=== PATIENT | male | born 1955 | race Caucasian/White ===

== ENCOUNTER 2016-05-05 08:32 | Inpatient (IN) | payer BC ==
--- NOTE | ~2016-05-05 | DS ---
Discharge Summary [facility] [address] [place]. [address] NAME: RICK ORELLANA : 57 STATUS : DIS IN PAT#: [id number] AGE: 60 ADM/REG DATE : 05/05/16 MR#: [id number] REPORT SERV DATE: 05/10/16 DICTATED BY: ROSA MARIA SERNA DATE: 05/09/16 REPORT STATUS : Draft TRANSCRIBED BY: MODL DATE: 05/09/16 ADMISSION DATE: 05/05/2016 DISCHARGE DATE: 05/09/2016 DISCHARGE DIAGNOSES: 1. Acute cholecystitis with choledocholithiasis with presentation of obstructive jaundice, improved, is not getting any worse, status post ERCP. 2. Upa-PA-cvondewwo myocardial infarction, status post PCI with stent on 05/08/2016 and will need at least a year of dual antiplatelet therapy. 3. Diabetes mellitus. 4. Congestive heart failure, systolic dysfunction, compensated. 5. Hyperlipidemia. Zetia was started on this admission. 6. Elevated liver function tests, need to closely monitor. CONSULTATIONS: 1. Dr. Lowery. 2. . 3. Dr. Harper. PROCEDURE: 1. ERCP. 2. Cardiac catheterization with stent on PDA. HISTORY OF PRESENT ILLNESS: This is a 60-year-old male patient, who initially came to the hospital with nausea, vomiting, and jaundice. Please see dictated H and P done by Dr. Ramirez for detailed history and physical exam. HOSPITAL COURSE: Please see dictated interim discharge summary. The patient has been admitted to the hospital with acute obstructive jaundice, seen by GI Service, had an ERCP on 05/05/2016. At that time, he was having common bile duct stone. Dr. Cai did a sphincterectomy and did remove three stones and balloon angioplasty. After that, recommended to get laparoscopic cholecystectomy with the general surgeon. General surgeon has been following this patient as well. However, he ended up having chest pain and was found to have non-ST elevation [place]. He had a cardiac catheterization done with Dr. Parks on 05/08/2016, and had a stent on PDA. Therefore, the patient will need dual antiplatelet therapy at least one year, and medical therapy for mid LAD lesion. His LFTs and total bilirubin have been stabilized, it is not getting any worse and he is symptom free. He is tolerating diet without any problem such as nausea or vomiting. His jaundice is not getting any worse either. Knowing that he will be on dual antiplatelet therapy for at least a year, the patient is not a candidate for any surgical intervention at the current level, and also his LFTs are stable. In order to control the hyperlipidemia, initially he was put on statin, but it was changed to Zetia by Dr. Parks after the cardiac cath due to elevated LFTs in light of episodes of acute obstructive jaundice. So far, he is tolerating all the procedures and maintaining a Discharge Summary [address] [address] NAME: RICK ORELLANA : 57 STATUS : DIS IN PAT#: [id number] AGE: 60 ADM/REG DATE : 05/05/16 MR#: [id number] REPORT SERV DATE: 05/10/16 DICTATED BY: ROSA MARIA SERNA DATE: 05/09/16 REPORT STATUS : Draft TRANSCRIBED BY: MODL DATE: 05/09/16 stable level. He is tolerating his diet. His LFTs are stable, and also again, he is not a candidate for surgery at this point, so he was instructed to follow up with primary care physician very closely for his LFTs and also information about the diet changes given. His family, his and himself, voiced understanding. Therefore, the patient will be discharged to home and follow up at Dr. Willoughby and Dr. Graham and Dr. Booker. DISCHARGE MEDICATIONS: Same as home medications. Brilinta was added 90 mg twice a day, aspirin 81 mg once a day, Zetia 10 mg once a day. Those are new medications. Continue to have all the home medications including Norvasc 10 mg once a day, Coreg 25 mg twice a day, Cozaar 100 mg once at nighttime, Prilosec 20 mg once a day, Hytrin 5 mg once at nighttime, metformin 500 mg twice a day, Farxiga 5 mg once a day, Inspra 50 mg once a day. DISPOSITION: The patient is discharged to home in stable condition. TIME SPENT: More than 30 minutes on discharge coordination and education. EKL/MODL Rosa Maria Serna M.D. / [id number] CC: Rayshawn Tillman M.D.
--- NOTE | ~2016-05-05 | IDS ---
Interim Discharge Summary [facility] [address] [place]. [address] NAME: RICK ORELLANA : 57 STATUS : ADM IN [facility]#: [id number] AGE: 60 ADM/REG DATE : 05/05/16 MR#: [id number] REPORT SERV DATE: 05/08/16 DICTATED BY: DATE: REPORT STATUS : Draft TRANSCRIBED BY: MODL DATE: 05/08/16 ADMISSION DATE: 05/05/2016 DISCHARGE DATE: INTERIM DISCHARGE DIAGNOSES: 1. Zsk-CH-aydcpld elevation myocardial infarction. 2. Hepatomegaly transaminitis. 3. Nonischemic cardiomyopathy. 4. Hyperlipidemia. 5. Diabetes mellitus, type 2. 6. Choledocholithiasis, needing a cholecystectomy. CONSULTING PHYSICIANS: Include Dr. Leroy SIMPSON as well as Dr. Doni Cai with GI Medicine, Dr. Lowery, Dr. Sylvain Fields. IMAGING: Includes CT of the abdomen and pelvis with contrast which demonstrated mild dilatation of the common duct with choledocholithiasis, small ventral hernia, partially calcified density in the left posterior medial chest base stable compared to 04/03/2012. The patient also underwent an ultrasound of the gallbladder which showed cholelithiasis without evidence of acute cholecystitis or biliary obstruction. There was a hypoechoic liver lesion measuring 2.3 x 1.2 cm. Echocardiogram was performed which showed mildly decreased left ventricular systolic function with an estimated ejection fraction of 40% to 45%, mild left ventricular hypertrophy, anterior septal hypokinesis, normal right ventricular chamber size and systolic function, no significant valvular regurgitation or stenosis noted. The patient underwent an ERCP on 05/05/[address] Doni Cai. The major papilla appeared normal. The main bile duct was mildly dilated. Choledocholithiasis was found, complete removal was accomplished by biliary sphincterotomy and balloon extraction, he recommended a cholecystectomy and Surgery was consulted. For full H and P, please refer to Dr. Chase Ramirez's dictation on 05/05/2016. HOSPITAL COURSE/PROBLEM LIST: 1. Non-STEMI. The patient underwent a cardiac catheterization today performed by Dr. Pascual Parks, 90% proximal PDA, 70% mid-LAD occlusion, and appears that the stent was placed in the PDA and was drug-eluting. Dr. Parks recommend dual antiplatelet therapy an optimal duration of at least one year, medical therapy for mid-LAD disease. 2. Hepatomegaly transaminitis. Today, the patient's AST is up to 310, ALT is up to 172, unclear if this is due to statin therapy. The patient has had issues in the past with elevated liver enzymes from statin therapy. Dr. Harper cautiously placed him on a statin due to his poor cholesterol and cardiac issues at this time. However, it is unclear this is going to be beneficial if his enzymes continue to elevate. Hepatitis panel was drawn which was negative initially. He currently is not complaining of abdominal pain. No nausea or vomiting is present. Continue to watch transaminases. 3. Choledocholithiasis. The patient needs cholecystectomy with the above interventions and drug-eluting stent with dual antiplatelet therapy. It is unclear when the patient will be able to get his cholecystectomy and this will be a conversation between Surgery Interim Discharge Summary [address] [address] NAME: RICK ORELLANA : 57 STATUS : ADM IN [facility]#: [id number] AGE: 60 ADM/REG DATE : 05/05/16 MR#: [id number] REPORT SERV DATE: 05/08/16 DICTATED BY: DATE: REPORT STATUS : Draft TRANSCRIBED BY: MODL DATE: 05/08/16 and Cardiology as to what the optimal timing for this would be. 4. Diabetes mellitus, type 2. His blood glucose is ranged from 110s to 140s, hemoglobin A1c is 6.6, the patient has been on level 1 sliding scale and has not required any insulin. 5. Hyperlipidemia. As mentioned above, statin therapy was cautiously prescribed. Close monitoring of his transaminases will need to continue. The patient currently is in short-stay, unclear if he is going to go back to [address] [place] [address] to [facility]. CLR/MODL Van Lazcano NP / [id number] CC: MD Girish Sanders M.D.
--- NOTE | ~2016-05-05 | CN ---
Consultation Report [facility] [address] [place]. [address] NAME: RICK ORELLANA : 57 STATUS : ADM IN PAT#: [id number] AGE: 60 ADM/REG DATE : 05/05/16 MR#: [id number] REPORT SERV DATE: 05/05/16 DICTATED BY: EDI LOWERY DATE: 05/05/16 REPORT STATUS : Draft TRANSCRIBED BY: MODL DATE: 05/05/16 GI CONSULT DATE OF CONSULTATION: 05/05/2016 REASON FOR CONSULTATION: Regarding elevated liver tests. HISTORY OF PRESENT ILLNESS: This is a pleasant, 60-year-old, man, patient of Dr. Graham who presented to the emergency room after 2 weeks of fatigue and intermittent low- grade fever. He developed jaundice and dark urine about one to two days ago. Workup at [facility] was notable for elevated liver tests, see details below. Chest x-ray was negative. He was sent to [facility] for further evaluation and management. Colonoscopy in 06/[address] Graham showed diverticulosis, a patent end-to-end colocolonic anastomosis, internal hemorrhoids and one small polyp removed. EGD showed short segment Juares's and a hiatal hernia. Exam otherwise largely unremarkable. MEDICAL HISTORY: Remarkable for dilated cardiomyopathy with ejection fraction 30%, type 2 diabetes, Juares's esophagus, hypertension. He has a history of diverticulitis with obstruction and surgical intervention with end-colostomy and eventual takedown by Dr. Blanco in 2012. ALLERGIES: STATINS. MEDICATIONS: Norvasc, Coreg, Farxiga, Inspra, Cozaar, Glumetza, Prilosec, Hytrin. FAMILY HISTORY: Remarkable for colorectal cancer in first degree relative. Otherwise negative. SOCIAL HISTORY: Does not use alcohol or tobacco significantly. REVIEW OF SYSTEMS: A complete review of systems was obtained and negative except that noted in the history of present illness. PHYSICAL EXAMINATION: VITAL SIGNS: He is currently afebrile. Temperature 97.4, pulse 62, respirations 18, and blood pressure 132/77. DATA: From outlying emergency room shows the following: Chest x-ray, no focal infiltrate or radiographic evidence of acute cardiopulmonary disease. Total bilirubin is 4.6, AST 128, ALT 293, alkaline phosphatase 155. WBC 5.5, hematocrit 46.4, MCV 91.5, platelets 269, bicarb 27, potassium 3.8, albumin is 3.7, and creatinine is 1.0. IMPRESSION: Consultation Report [facility] [address] [place]. [address] NAME: RICK ORELLANA : 57 STATUS : ADM IN PAT#: [id number] AGE: 60 ADM/REG DATE : 05/05/16 MR#: [id number] REPORT SERV DATE: 05/05/16 DICTATED BY: EDI LOWERY DATE: 05/05/16 REPORT STATUS : Draft TRANSCRIBED BY: AUGUSTUS DATE: 05/05/16 1. Jaundice with elevated liver tests. Question related to intrinsic liver disease versus biliary obstruction, favor the latter. 2. Congestive heart failure, controlled. RECOMMENDATIONS: 1. Follow liver panel and start antibiotics to cover biliary tree. 2. CT scan pending. 3. Anticipate ERCP to study bile duct. CC/AUGUSTUS Edi Lowery M.D. / [id number] CC: MD Aubrey Sanders III, M.D.
--- NOTE | ~2016-05-05 | EGD ---
EGD REPORT [facility] [address] [address] NAME: RICK SQUIRES : 57 STATUS : ADM IN PAT#: [id number] AGE: 60 ADM/REG DATE : 05/05/16 MR#: [id number] REPORT SERV DATE: 05/05/16 DICTATED BY: ANNMARIE WORLEY DATE: 05/05/16 REPORT STATUS : Draft TRANSCRIBED BY: [employer] DATE: 05/05/16 [facility] Patient Name: Rick Squires Date of : 1955 Attending MD: ANNMARIE WORLEY, Procedure Date No Time: 05/05/2016 Procedure: ERCP Indications: Bile duct stone(s), Suspected ascending cholangitis Referring MD: CROW FONSECA III, MD Medicines: General Anesthesia Complications: No immediate complications. Estimated blood loss: None Procedure: Pre-Anesthesia Assessment: - ASA Grade Assessment: IV - A patient with severe systemic disease that is a constant threat to life. After obtaining informed consent, the scope was passed under direct vision. Throughout the procedure, the patient's blood pressure, pulse, and oxygen saturations were monitored continuously. The Duodenoscope was introduced through the mouth, and advanced to the duodenum and used to inject contrast into the bile duct. Findings: The major papilla was normal. The bile duct was deeply cannulated with the short-nosed traction sphincterotome. Contrast was injected. I personally interpreted the bile duct images. Ductal flow of contrast was adequate. The lower third of the main bile duct contained three stones, the largest of which was 6 mm in diameter. The main bile duct was mildly dilated and diffusely dilated. The left and right hepatic ducts and all intrahepatic branches were normal. Biliary sphincterotomy was made with a traction (standard) sphincterotome using ERBE electrocautery. There was no post-sphincterotomy bleeding. The biliary tree was swept with a 12 mm balloon starting at the upper third of the main bile duct. Three stones were removed. No stones remained. Impression: - The major papilla appeared normal. - The entire main bile duct was mildly dilated. - Choledocholithiasis was found. Complete removal was accomplished by biliary sphincterotomy and balloon extraction. Recommendation: - Return to previous diet. - Continue present medications. - Surgical consult for cholecystectomy. Procedure Code(s): --- Professional --- EGD REPORT [address] [address] NAME: RICK SQUIRES : 57 STATUS : ADM IN [facility]#: [id number] AGE: 60 ADM/REG DATE : 05/05/16 MR#: [id number] REPORT SERV DATE: 05/05/16 DICTATED BY: ANNMARIE WORLEY DATE: 05/05/16 REPORT STATUS : Draft TRANSCRIBED BY: [employer] DATE: 05/05/16 [id number], Endoscopic retrograde cholangiopancreatography (ERCP); with removal of calculi/debris from biliary/pancreatic duct(s) [address], Endoscopic retrograde cholangiopancreatography (ERCP); with sphincterotomy/papillotomy Diagnosis Code(s): --- Professional --- K80.50, Calculus of bile duct without cholangitis or cholecystitis without obstruction Q44.0, Agenesis, 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 All rights reserved. The codes documented in this report are preliminary and upon insurance claims assistant review may be revised to meet current compliance requirements. ANNMARIE WORLEY, 05/05/2016 5:25 PM Number of Addenda: 0 Note Initiated On: 05/05/2016 4:53 PM Scope Withdrawal Time 0 hours 0 minutes 0 seconds [address] [place] [address]
--- NOTE | ~2016-05-05 | CN ---
Consultation Report [place] [address]. [address] NAME: RICK ORELLANA : 57 STATUS : ADM IN [facility]#: [id number] AGE: 60 ADM/REG DATE : 05/05/16 MR#: [id number] REPORT SERV DATE: 05/06/16 DICTATED BY: SYLVAIN MELCHOR DATE: 05/05/16 REPORT STATUS : Draft TRANSCRIBED BY: MODL DATE: 05/05/16 SURGERY CONSULT NOTE DATE OF CONSULTATION: 05/05/2016 TIME OF CONSULTATION: 2130 hours. REASON FOR CONSULT: Choledocholithiasis/cholelithiasis. HISTORY OF PRESENT ILLNESS: This is a 60-year-old male who presented to another facility with approximately two weeks of fever, chills, nausea, and mild chest pain, who presented yesterday with these symptoms, and was found to have elevated bilirubin and liver enzymes, and was sent to this facility. Here, he received GI consult to do an ERCP, which revealed stones in the common bile duct, which were removed. Imaging workup has demonstrated both gallstones on both CT scan as well as ultrasound with no evidence of cholecystitis. The patient does describe a decrease in appetite over this timeframe as well as dark discoloration of his urine and some scleral icterus. PAST MEDICAL HISTORY: 1. Cardiomyopathy with several echos in the past. The patient is followed by Dr. Booker and apparently has had improvement in his cardiac function. 2. Diabetes. 3. Juares esophagus. 4. Hypertension. PAST SURGICAL HISTORY: Includes diverticulitis with sigmoid resection and colostomy and subsequent colostomy takedown. These were all done in 2012. MEDICATIONS: Home medications include metformin, Coreg, losartan, Norvasc, Prilosec, terazosin. ALLERGIES: NONE. SOCIAL HISTORY: The patient denies any tobacco, alcohol, or illicit drug use. FAMILY HISTORY: Significant for brain cancer in his father, [place], gallbladder disease in mother, and heart disease in other parts of his family. REVIEW OF SYSTEMS: A comprehensive review of systems was performed, and is negative, other than those things stated in the HPI. PHYSICAL EXAMINATION: GENERAL: This is a 60-year-old male, who looks his stated age. No acute distress. Consultation Report [place] [address] [facility] [place]. [address] NAME: RICK ORELLANA : 57 STATUS : ADM IN PAT#: [id number] AGE: 60 ADM/REG DATE : 05/05/16 MR#: [id number] REPORT SERV DATE: 05/06/16 DICTATED BY: SYLVAIN MELCHOR DATE: 05/05/16 REPORT STATUS : Draft TRANSCRIBED BY: AUGUSTUS DATE: 05/05/16 VITAL SIGNS: Temperature 97.8, blood pressure 153/74, heart rate 82, respiratory rate 18, and O2 saturation 96% on room air. NEUROLOGIC: The patient is alert and oriented x3. No focal sensory or motor deficits. HEENT: The patient is normocephalic. Head is atraumatic. Pupils are equally round and reactive to light. Extraocular muscles are intact. Some mild scleral icterus is noted. NECK: Soft and supple. Trachea is midline. HEART: Regular rate and rhythm. No murmurs, gallops, or rubs. CHEST: Clear to auscultation bilaterally. No rhonchi. No wheezes. ABDOMEN: Soft, nondistended. Minimally tender to palpation in the epigastric area. No Llanes sign is appreciated. The patient does have a lower midline scar with a closed colostomy incision on the left side. EXTREMITIES: The patient moves all extremities. LABORATORY DATA: Previous blood work shows sodium 139, potassium 3.8, creatinine of 1, bilirubin 4.6. AST 128, ALT 293, alkaline phosphatase 155. The patient initially had a troponin drawn at 0.04; this was drawn later today which is showing elevation. ASSESSMENT: This is a 60-year-old male with choledocholithiasis, abdominal pain, status post endoscopic retrograde cholangiopancreatography sphincterotomy . PLAN: 1. Recheck labs in the morning. We will also redraw cardiac labs. 2. If these show improvement and are okay, plan on lap adelaida with likely cholangiogram in the morning. I have discussed risks of bleeding, infection, injury to surrounding structures including bowel and common bile duct, and the patient understands this and is ready to go forward with this procedure pending morning labs. This has been discussed Dr. Melchor, who agrees to this plan. DICTATED BY: MD DAVID Wolfe/AUGUSTSU Sylvain Melchor M.D. / [id number] CC: Irving Kurtz MD
--- NOTE | ~2016-05-05 | CN ---
Consultation Report [facility] [address] [place]. [address] NAME: RICK SQUIRES : 57 STATUS : ADM IN [facility]#: [id number] AGE: 60 ADM/REG DATE : 05/05/16 MR#: [id number] REPORT SERV DATE: 05/06/16 DICTATED BY: DATE: REPORT STATUS : Draft TRANSCRIBED BY: MODL DATE: 05/06/16 CARDIOLOGY CONSULT DATE OF CONSULTATION: 05/06/2016 CHIEF COMPLAINT/REASON FOR CONSULT: Chest pain and elevated cardiac biomarkers. HISTORY OF PRESENT ILLNESS: Mr. Squires is a very pleasant 60-year-old gentleman, who is a patient of my colleague, Dr. Booker, but has not been seen since May of 2013. He presented to an outside hospital with jaundice, nausea, vomiting, and chest discomfort. The patient stated that his original chest discomfort occurred when he was sitting on the couch, it was 7/10 in intensity. He took some Gaviscon and it helped, but about approximately four hours later his chest discomfort returned. He stated that he was been nauseated for two weeks. He has had on and off fevers and vomiting. Current initial cardiac biomarkers were mildly elevated and had increased since admission to 1.8. The patient has a known history of nonischemic cardiomyopathy. His last cardiac catheterization in 2012 did not show significant obstructive disease. The patient has undergone ERCP and sphincterotomy for choledocholithiasis, and also requires cholecystectomy prior to hospital discharge. PAST MEDICAL HISTORY: 1. Nonischemic cardiomyopathy, ejection fraction of 40% to 45%, with known the anteroseptal hypokinesis. 2. Diabetes. 3. Hypertension. 4. Unknown lipid status. 5. Juares's esophagus. 6. Chronic left bundle-branch block. SOCIAL HISTORY: The patient is . His is present at the bedside. He quit smoking in 1997. He does not use alcohol or extracurricular drugs. FAMILY HISTORY: Significant for father who of brain cancer. His mother had a history of coronary artery disease and had two prior bypass surgeries. He had a brother with a history of NM and a sister with a history of heart disease as well. REVIEW OF SYSTEMS: All systems were reviewed and is negative except for as dictated in the HPI. PHYSICAL EXAMINATION: VITAL SIGNS: The patient is afebrile. Blood pressures range between 129 and 148/83 to 77, pulse is 62 to 78, respirations 16, and oxygen saturations 96% on room air. GENERAL: Mr. Squires is in no distress. Consultation Report [place] [id number] [place]. [address] NAME: RICK SQUIRES : 57 STATUS : ADM IN PAT#: [id number] AGE: 60 ADM/REG DATE : 05/05/16 MR#: [id number] REPORT SERV DATE: 05/06/16 DICTATED BY: DATE: REPORT STATUS : Draft TRANSCRIBED BY: MODL DATE: 05/06/16 NECK: No jugular venous distention. No carotid bruits. HEART: Regular rate and rhythm. Normal S1 and S2. No murmurs, rubs, or gallops. ABDOMEN: Soft and nontender. I could not appreciate any renal bruits. EXTREMITIES: Warm. There is a bruit at the right femoral artery, none at the left. I could not appreciate any pitting edema, but there is paucity of hair in the legs from the lower thigh down. Jaime's test performed on the right wrist demonstrated dual blood supply to the palm of the right hand. MUSCULOSKELETAL: No clubbing or cyanosis of the digits. NEUROLOGIC: No focal neurologic deficits. The patient is alert and oriented. Moves all extremities well. LABORATORY AND DIAGNOSTIC DATA: Sodium 138, potassium 4, BUN 12, creatinine 0.81, hemoglobin 14.7, hematocrit of 43.4, platelet count is 270. Initial cardiac enzymes gone from 0.96 to 1.8. An EKG performed documents the patient's chronic left bundle-branch block. Echocardiogram performed this morning demonstrated mildly decreased left ventricular systolic function with an ejection fraction of 40% to 45%. Mild left ventricular hypertrophy and anteroseptal hypokinesis. When compared to the previous study performed on 09/29/2014, there was no significant change. IMPRESSION: 1. Chest pain, positive troponin concerning for non-ST elevation myocardial infarction versus demand. 2. History of nonischemic cardiomyopathy with ejection fraction of 40% to 45%, stable since September 2014. 3. Hypertension. 4. Diabetes mellitus. 5. Increased liver function tests. 6. Choledocholithiasis requiring cholecystectomy. 7. Chronic left bundle-branch block. 8. Right femoral bruit. RECOMMENDATIONS: 1. We would start heparin via the cardiac protocol. 2. Continue SKY inhibitor and beta-manasa. 3. We would add low-dose aspirin. 4. Would use nitroglycerin, as needed basis. 5. Cautiously add statin at this time and monitor liver function tests. 6. I discussed the risks, benefits, and alternatives of cardiac catheterization with the patient and he including heart attack, stroke, , kidney failure, irregular heart rhythm, need for emergency surgery, pain, bleeding, and infection. The patient is agreeable to proceed, if he remains hemodynamically stable, we will arrange this on 05/08/2016. It has been my pleasure to participate in his care. Consultation Report [facility] [address] [place]. [address] NAME: RICK SQUIRES : 57 STATUS : ADM IN [facility]#: [id number] AGE: 60 ADM/REG DATE : 05/05/16 MR#: [id number] REPORT SERV DATE: 05/06/16 DICTATED BY: DATE: REPORT STATUS : Draft TRANSCRIBED BY: AUGUSTUS DATE: 05/06/16 [facility] Erika Harper M.D. / [id number] CC: Irving Kurtz MD
--- NOTE | ~2016-05-05 | HP ---
History And Physical [place] [id number] [facility] [place]. [address] NAME: RICK ORELLANA : 57 STATUS : ADM IN [facility]#: [id number] AGE: 60 ADM/REG DATE : 05/05/16 MR#: [id number] REPORT SERV DATE: 05/05/16 DICTATED BY: JOSSE ROMO DATE: 05/05/16 REPORT STATUS : Draft TRANSCRIBED BY: MODL DATE: 05/05/16 DATE OF ADMISSION: 05/05/2016 EXAMINING PHYSICIAN: Dr. Josse Romo. REASON FOR ADMISSION: Transfer from [facility] with jaundice, nausea and vomiting. HISTORY OF PRESENT ILLNESS: This is a 60-year-old white male, who two weeks ago, had some fever and chills, and vomited one time. He was nauseated. He went to walk-in clinic, was diagnosed with a virus. No blood work was obtained. The patient had no treatment and went home. He has been feeling bad since that time. His urine has turned brown, and he has turned yellow over the last 24 hours. He did have an episode of chest pain, but is nondescript now. His complains about it more than he does. It was an anterior chest pain, more like dyspepsia. 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 He has also had colonoscopy in the past by Dr. Aubrey Graham, has been seen by Dr. Aubrey Graham with EGD and colonoscopy in the past. He also had sigmoid diverticulitis causing obstruction requiring surgical intervention with colostomy and eventual takedown in [address] Blanco. Pathology from that showed there was no evidence of inflammatory bowel disease or Crohn disease. The patient did have a history of diarrhea prior to that time. He went to the emergency room with some chest pain today, but was found to have elevated bilirubin of 4.6, with a SGOT of 128, SGPT of 293, and an alkaline phosphatase of 155. He has had some nausea, but little vomiting earlier. The chest pain is not exertional. PAST MEDICAL HISTORY: He has a history of a dilated cardiomyopathy. His ejection fraction was 30% back in 2013. He has been followed by Dr. Aram Booker for that, and recent echocardiogram showed improvement in the ejection fraction. He has been able to work. He has a history of diabetes type 2. He is followed by Dr. Girish Lopez. He has been on several medications in the past. He was on Jardiance and Forxiga 5 mg p.o. daily. He has a history of Juares's esophagus. Longstanding history of hypertension. MEDICATIONS: Include the following: Metformin ER 500 mg p.o. daily, Coreg 25 mg p.o. b.i.d., losartan 100 mg p.o. daily, Norvasc 5 mg p.o. daily, Prilosec 20 mg p.o. daily, terazosin 5 mg p.o. h.s. All for high blood pressure except for the diabetes medications. SOCIAL HISTORY: He is . Lives with his . He grew up in [place], lives in [place] now. His is from [place]. Attends [employer], where he is an active member. He does not take any alcohol or use tobacco products. 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. He did have a remodeling project at home where he cut his thumb on a bathroom tile that he took out of his bathroom about two months ago, but no other needle sticks. No illicit drug use or exposure to persons with hepatitis as far as he knows. FAMILY HISTORY: His father of brain cancer. Mother had an OH and gallbladder trouble. History And Physical [address] [place]. [address] NAME: RICK ORELLANA : 57 STATUS : ADM IN [facility]#: [id number] AGE: 60 ADM/REG DATE : 05/05/16 MR#: [id number] REPORT SERV DATE: 05/05/16 DICTATED BY: JOSSE ROMO DATE: 05/05/16 REPORT STATUS : Draft TRANSCRIBED BY: MODL DATE: 05/05/16 He had a brother with OH, and sister with heart disease as well. REVIEW OF SYSTEMS: He has had no headache, eye pain, or double vision. He has had nausea, rare vomiting. No diarrhea. No dyspepsia, chest pain, or reflux symptoms. 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 No fever, chills, or night sweats recently, though he did have that initially when he presented. No melena, hematemesis, or unilateral weakness. He has had brown urine and jaundice cast for the last two days. No Tylenol overdose or toxic chemical exposure that he is aware of. No fits, seizures, or convulsions. No family history of liver problems. PHYSICAL EXAMINATION: VITAL SIGNS: The blood pressure is 139/77, heart rate 62, oxygen saturation 97%, temperature 97.2, and respiratory rate 16. HEENT: EOMI. Sclerae icteric. Conjunctivae pink. NECK: No bruit without any JVD. CHEST: Clear to A and P. HEART: Regular S1, S2 without murmur, gallop, or click. ABDOMEN: Diffusely enlarged and protuberant. There is no tenderness. Liver is 6- fingerbreadths below the inferior costal margin with a soft lower edge. Spleen is not palpable. The abdominal wall is palpable, a fibrofatty nodule in the left upper quadrant. : There is no tenderness in the pelvis nor mass. EXTREMITIES: Have jaundice and a paucity of hair on the legs. His distal pulses are intact through the dorsalis pedis and posterior tibial. NEUROLOGIC: He withdraws to plantar stimulation. Programming Specialist is equal and symmetric bilaterally. Coordination is intact. He has no tremor. He has no asterixis. He has DTRs elicitable in the upper and lower extremities. Weak at the knee joint; however. Strength is symmetric and equal bilaterally, but diminished. The patient is generally ill- feeling. PSYCHIATRIC: The patient is alert and oriented. His speech is cogent and goal-directed. LYMPHATICS: There is no adenopathy palpable. LABORATORY DATA: EKG shows left bundle branch block is unchanged from previous. His blood sugar is 133. Sodium 139, potassium 3.8, chloride 101, CO2 of 21, creatinine 1.0, and BUN 16. Hemoglobin 15.3, hematocrit 46.4, white count 5.6, and platelets 269,000. The MCV was 91. His bilirubin was 4.6, OT of 128, SGPT was 293, and his alkaline phosphatase was 155. ASSESSMENT: 1. Hepatitis. He has hepatomegaly with transaminitis. I doubt obstruction with a low level of alkaline phosphatase. Though, we should look for this first. Ultrasound of the gallbladder is requested first and follow with a CT scan of the abdomen for better definition of the anatomic features. 2. Hepatomegaly. 3. History of dilated cardiomyopathy, followed by Dr. Booker. We will check the echocardiogram from [facility] to see this is not a congestive hepatomegaly. 4. Hyperlipidemia. His liver test went up with statin drugs by Dr. Lopez. We will get History And Physical [address] [place]. [address] NAME: RICK ORELLANA : 57 STATUS : ADM IN PAT#: [id number] AGE: 60 ADM/REG DATE : 05/05/16 MR#: [id number] REPORT SERV DATE: 05/05/16 DICTATED BY: JOSSE ROMO DATE: 05/05/16 REPORT STATUS : Draft TRANSCRIBED BY: MODL DATE: 05/05/[address] Lopez to discover the time course that this is not proximal. 5. History of Juares's esophagus. We will consult Dr. Graham, he is familiar with him while we are gathering information. 6. Hypertension, on multiple medications. 7. Review of medications above is not new. There have been no new medications started in last three months that might implicate a pharmacologic hepatitis. We will start with anatomic evaluation to see if there is anatomic discoverable feature affecting the liver. DB/MODL Josse Romo M.D. / [id number] CC: MD Lorenzo Sanders M.D. Munford Yates III, M.D. Robert Drake, M.D. Gordon Graham, M.D.
[~2016-05-05 08:32] MED LIST: COREG25 PO; COZ50 PO; COZAAR100 MG PO; HYT5 PO; INSPRA50 MG PO; NORV10 PO; PCET PO; PRILO PO; TIAZA5 PO
[2016-05-05] MEDS ORDERED: GLUMETZA500 MG PO (10:56)
[2016-05-05] MEDS ORDERED: PRILO (10:57)
[2016-05-05] MEDS ORDERED: FARXIGA5 PO (10:58)
[2016-05-05] MEDS ORDERED: INSPRA50 MG PO (10:59)
[2016-05-05 11:14] LABS: GLYCOHEMOGLOBIN (HbA1c) 6.6 % (4.7-6.1)
[2016-05-05 11:25] LABS: TROPONIN I 0.96 NG/ML (<0.05)
[2016-05-05 11:41] LABS: HEPATITIS B SURFACE ANTIGEN NON-REACTIVE (NON-REACT)
[2016-05-05 12:09] LABS: HEPATITIS B CORE AB IGM NON-REACTIVE (NON-REAC); HEPATITIS C ANTIBODY NON-REACTIVE (NON-REACT)
[2016-05-05 12:11] LABS: HEP A ANTIBODY IGM NON-REACTIVE (NON-REACT)
[2016-05-05 16:03] LABS: PROTIME (NOT ORD) 13.3 SEC (12.0-14.5)
[2016-05-06 05:06] LABS: BASOPHILS 0.5 %; BASOPHILS ABSOLUTE 0.03 10/3/uL (0.0-0.16); EOSINOPHILS 1.6 %; HEMOGLOBIN 14.7 g/dL (13.6-17.8); IMMATURE GRANULOCYTES 0.3 %; IMMATURE GRANULOCYTES ABSOLUTE 0.02 10/3/uL (0.0-0.11); LYMPHOCYTES 22.6 %; LYMPHOCYTES ABSOLUTE 1.43 10/3/uL (0.67-4.30); MEAN CORPUS HGB CONC 33.9 g/dL (32.0-36.0); MEAN CORPUSCULAR HEMOGLOB 30.9 pg (26.0-34.0); MEAN PLATELET VOLUME 10.2 fL (9.2-13.0); MONOCYTES 6.8 %; MONOCYTES ABSOLUTE 0.43 10/3/uL (0.21-1.20); NEUTROPHILS 68.2 %; NEUTROPHILS ABSOLUTE 4.31 10/3/uL (2.02-8.40); PLATELET COUNT 270 10/3/uL (150-400); RBC DISTRIBUTION WIDTH 12.9 % (12.0-16.0); RED CELL COUNT 4.76 10/6/uL (4.7-6.1); WHITE BLOOD CELLS 6.3 10/3/uL (4.5-10.5)
[2016-05-06 05:08] LABS: HEMATOCRIT 43.4 % (40.0-51.0)
[2016-05-06 05:09] LABS: MANUAL DIFF NO %; MEAN CORPUSCULAR VOLUME 91.2 fL (80-100)
[2016-05-06 05:24] LABS: ALBUMIN 3.1 G/DL (3.5-5.0); BUN (BLOOD UREA NITROGEN) 12 MG/DL (6-23); CALCIUM, SERUM 8.9 MG/DL (8.5-10.4); CHLORIDE, SERUM 101 MMOL/L (96-112); CO2 (CARBON DIOXIDE) 27 MMOL/L (24-34); CREATININE 0.81 MG/DL (0.70-1.30); GFR AFRICAN AMERICAN 113 ML/MIN (>=60); GFR NON AFRICAN AMERICAN 97 ML/MIN (>=60); SGOT(AST) 123 U/L (5-40); SGPT(ALT) 230 U/L (5-65); SODIUM, SERUM 138 MMOL/L (135-148); TOTAL PROTEIN 7.5 G/DL (6.0-8.5)
[2016-05-06 05:26] LABS: A/G RATIO 0.7 (0.7-1.9); ALKALINE PHOSPHATASE 117 U/L (45-117); GLOBULIN 4.4 G/DL (2.5-4.1); GLUCOSE, SERUM 113 MG/DL (60-99); TOTAL BILIRUBIN 3.8 MG/DL (0-1.2)
[2016-05-06 11:15] LABS: TROPONIN I 1.24 NG/ML (<0.05)
[2016-05-06 14:02] LABS: PARTIAL THROMBO TIME 28.6 SEC (22.5-37.2); PROTIME (NOT ORD) 13.5 SEC (12.0-14.5)
[2016-05-07 04:39] LABS: BASOPHILS 0.9 %; BASOPHILS ABSOLUTE 0.05 10/3/uL (0.0-0.16); EOSINOPHILS 1.6 %; EOSINOPHILS ABSOLUTE 0.09 10/3/uL (0.0-0.53); HEMATOCRIT 44.6 % (40.0-51.0); HEMOGLOBIN 14.9 g/dL (13.6-17.8); IMMATURE GRANULOCYTES 0.4 %; IMMATURE GRANULOCYTES ABSOLUTE 0.02 10/3/uL (0.0-0.11); LYMPHOCYTES 26.2 %; LYMPHOCYTES ABSOLUTE 1.47 10/3/uL (0.67-4.30); MEAN CORPUS HGB CONC 33.4 g/dL (32.0-36.0); MEAN CORPUSCULAR HEMOGLOB 30.8 pg (26.0-34.0); MEAN CORPUSCULAR VOLUME 92.1 fL (80-100); MEAN PLATELET VOLUME 10.2 fL (9.2-13.0); MONOCYTES 14.2 %; NEUTROPHILS 56.7 %; NEUTROPHILS ABSOLUTE 3.19 10/3/uL (2.02-8.40); PLATELET COUNT 263 10/3/uL (150-400); RED CELL COUNT 4.84 10/6/uL (4.7-6.1); WHITE BLOOD CELLS 5.6 10/3/uL (4.5-10.5)
[2016-05-07 04:42] LABS: MANUAL DIFF NO %
[2016-05-07 04:44] LABS: PARTIAL THROMBO TIME 88.8 SEC (22.5-37.2)
[2016-05-07 04:58] LABS: A/G RATIO 0.7 (0.7-1.9); ALBUMIN 3.2 G/DL (3.5-5.0); ALKALINE PHOSPHATASE 112 U/L (45-117); BUN (BLOOD UREA NITROGEN) 13 MG/DL (6-23); CHLORIDE, SERUM 101 MMOL/L (96-112); CHOL/HDL RATIO(NOT ORDER) 7.3 (0-5); CHOLESTEROL 235 MG/DL (< 200); CO2 (CARBON DIOXIDE) 26 MMOL/L (24-34); CREATININE 0.86 MG/DL (0.70-1.30); DIRECT BILIRUBIN 1.3 MG/DL (0.0-0.4); GFR AFRICAN AMERICAN 110 ML/MIN (>=60); GFR NON AFRICAN AMERICAN 95 ML/MIN (>=60); GLOBULIN 4.3 G/DL (2.5-4.1); GLUCOSE, SERUM 122 MG/DL (60-99); HDL CHOLESTEROL 32 MG/DL (> 39); INDIRECT BILIRUBIN(NOT ORDER) 2.3 MG/DL (0.1-0.9); LDL CHOLESTEROL 168 MG/DL (< 130); NON-HDL CHOLESTEROL 203 MG/DL (< 160); POTASSIUM, SERUM 3.8 MMOL/L (3.5-5.3); SGOT(AST) 141 U/L (5-40); SGPT(ALT) 246 U/L (5-65); SODIUM, SERUM 138 MMOL/L (135-148); TOTAL BILIRUBIN 3.6 MG/DL (0-1.2); TOTAL PROTEIN 7.5 G/DL (6.0-8.5); TRIGLYCERIDE 176 MG/DL (< 150)
[2016-05-08 04:36] LABS: BASOPHILS 0.8 %; BASOPHILS ABSOLUTE 0.04 10/3/uL (0.0-0.16); EOSINOPHILS 2.2 %; EOSINOPHILS ABSOLUTE 0.11 10/3/uL (0.0-0.53); HEMATOCRIT 44.9 % (40.0-51.0); HEMOGLOBIN 15.2 g/dL (13.6-17.8); IMMATURE GRANULOCYTES 0.2 %; IMMATURE GRANULOCYTES ABSOLUTE 0.01 10/3/uL (0.0-0.11); LYMPHOCYTES 30.7 %; LYMPHOCYTES ABSOLUTE 1.52 10/3/uL (0.67-4.30); MANUAL DIFF NO %; MEAN CORPUS HGB CONC 33.9 g/dL (32.0-36.0); MEAN CORPUSCULAR HEMOGLOB 30.6 pg (26.0-34.0); MEAN CORPUSCULAR VOLUME 90.5 fL (80-100); MEAN PLATELET VOLUME 10.2 fL (9.2-13.0); MONOCYTES ABSOLUTE 0.84 10/3/uL (0.21-1.20); NEUTROPHILS 49.1 %; NEUTROPHILS ABSOLUTE 2.43 10/3/uL (2.02-8.40); PLATELET COUNT 270 10/3/uL (150-400); RBC DISTRIBUTION WIDTH 12.8 % (12.0-16.0); RED CELL COUNT 4.96 10/6/uL (4.7-6.1)
[2016-05-08 04:41] LABS: INTERNATIONAL NORMAL RATI 1.1 UNITS (-)
[2016-05-08 04:47] LABS: BUN (BLOOD UREA NITROGEN) 13 MG/DL (6-23); CALCIUM, SERUM 9.2 MG/DL (8.5-10.4); CHLORIDE, SERUM 102 MMOL/L (96-112); CHOL/HDL RATIO(NOT ORDER) 7.2 (0-5); CHOLESTEROL 231 MG/DL (< 200); CO2 (CARBON DIOXIDE) 27 MMOL/L (24-34); CREATININE 0.76 MG/DL (0.70-1.30); GFR AFRICAN AMERICAN 116 ML/MIN (>=60); GFR NON AFRICAN AMERICAN 100 ML/MIN (>=60); GLUCOSE, SERUM 126 MG/DL (60-99); HDL CHOLESTEROL 32 MG/DL (> 39); LDL CHOLESTEROL 162 MG/DL (< 130); NON-HDL CHOLESTEROL 199 MG/DL (< 160); POTASSIUM, SERUM 3.4 MMOL/L (3.5-5.3); SODIUM, SERUM 140 MMOL/L (135-148); TRIGLYCERIDE 188 MG/DL (< 150)
[2016-05-08 09:46] LABS: ALBUMIN 3.4 G/DL (3.5-5.0); ALKALINE PHOSPHATASE 112 U/L (45-117); INDIRECT BILIRUBIN(NOT ORDER) 0.8 MG/DL (0.1-0.9); SGOT(AST) 172 U/L (5-40); SGPT(ALT) 310 U/L (5-65); TOTAL BILIRUBIN 1.8 MG/DL (0-1.2); TOTAL PROTEIN 7.9 G/DL (6.0-8.5)
[2016-05-08 14:39] LABS: CK-MB < 0.5 NG/ML; CPK 37 U/L (0-200)
[2016-05-09 04:50] LABS: BASOPHILS 0.9 %; BASOPHILS ABSOLUTE 0.04 10/3/uL (0.0-0.16); EOSINOPHILS ABSOLUTE 0.13 10/3/uL (0.0-0.53); HEMATOCRIT 43.6 % (40.0-51.0); HEMOGLOBIN 14.7 g/dL (13.6-17.8); IMMATURE GRANULOCYTES 0.5 %; IMMATURE GRANULOCYTES ABSOLUTE 0.02 10/3/uL (0.0-0.11); LYMPHOCYTES 31.7 %; LYMPHOCYTES ABSOLUTE 1.39 10/3/uL (0.67-4.30); MEAN CORPUS HGB CONC 33.7 g/dL (32.0-36.0); MEAN CORPUSCULAR HEMOGLOB 30.6 pg (26.0-34.0); MEAN CORPUSCULAR VOLUME 90.6 fL (80-100); MEAN PLATELET VOLUME 10.1 fL (9.2-13.0); MONOCYTES 12.1 %; MONOCYTES ABSOLUTE 0.53 10/3/uL (0.21-1.20); NEUTROPHILS 51.8 %; NEUTROPHILS ABSOLUTE 2.28 10/3/uL (2.02-8.40); PLATELET COUNT 275 10/3/uL (150-400); RBC DISTRIBUTION WIDTH 12.8 % (12.0-16.0); RED CELL COUNT 4.81 10/6/uL (4.7-6.1); WHITE BLOOD CELLS 4.4 10/3/uL (4.5-10.5)
[2016-05-09 04:52] LABS: MANUAL DIFF NO %
[2016-05-09 05:11] LABS: A/G RATIO 0.8 (0.7-1.9); ALBUMIN 3.2 G/DL (3.5-5.0); ALKALINE PHOSPHATASE 106 U/L (45-117); BUN (BLOOD UREA NITROGEN) 12 MG/DL (6-23); CHLORIDE, SERUM 105 MMOL/L (96-112); CO2 (CARBON DIOXIDE) 25 MMOL/L (24-34); CPK 37 U/L (0-200); CREATININE 0.76 MG/DL (0.70-1.30); GFR AFRICAN AMERICAN 116 ML/MIN (>=60); GFR NON AFRICAN AMERICAN 100 ML/MIN (>=60); GLOBULIN 4.1 G/DL (2.5-4.1); GLUCOSE, SERUM 109 MG/DL (60-99); PHOSPHORUS, SERUM 3.7 MG/DL (2.5-4.5); POTASSIUM, SERUM 3.6 MMOL/L (3.5-5.3); SGOT(AST) 128 U/L (5-40); SGPT(ALT) 272 U/L (5-65); SODIUM, SERUM 140 MMOL/L (135-148); TOTAL PROTEIN 7.3 G/DL (6.0-8.5)
[2016-05-09 05:16] LABS: CK-MB 1.4 NG/ML
[2016-05-09] MEDS ORDERED: BRILINTA90 MG PO (13:15)
[2016-05-09] MEDS ORDERED: ASAB PO (13:15)
[2016-05-09] MEDS ORDERED: ZETIA PO (13:15)
[2016-05-09] MEDS ORDERED: PRILO PO (13:18)
== END 2016-05-09 15:28 | disposition home or self-care (01) | DRG 981 ==
LOC: 7NO 08:32 → SSU1 05-08 13:31
PROVIDERS: Internal Medicine; Internal Medicine Cardiovascular Disease; Internal Medicine Gastroenterology; Nurse Practitioner Acute Care
PROC: 0F798ZZ Dilation of Common Bile Duct, Via Natural or Artificial Opening Endoscopic (ICD-10-PCS; 2016-05-05)
PROC: BF101ZZ Fluoroscopy of Bile Ducts using Low Osmolar Contrast (ICD-10-PCS; 2016-05-05)
PROC: 0FC98ZZ Extirpation of Matter from Common Bile Duct, Via Natural or Artificial Opening Endoscopic (ICD-10-PCS; 2016-05-05 17:08)
PROC: 027034Z Dilation of Coronary Artery, One Artery with Drug-eluting Intraluminal Device, Percutaneous Approach (ICD-10-PCS; principal; 2016-05-08)
PROC: B2151ZZ Fluoroscopy of Left Heart using Low Osmolar Contrast (ICD-10-PCS; 2016-05-08)
PROC: B2111ZZ Fluoroscopy of Multiple Coronary Arteries using Low Osmolar Contrast (ICD-10-PCS; 2016-05-08)
PROC: 4A023N7 Measurement of Cardiac Sampling and Pressure, Left Heart, Percutaneous Approach (ICD-10-PCS; 2016-05-08)
DX: K80.43 Calculus of bile duct with acute cholecystitis with obstruction (principal); I21.4 Non-ST elevation (NSTEMI) myocardial infarction; I42.0 Dilated cardiomyopathy; I50.22 Chronic systolic (congestive) heart failure; R16.0 Hepatomegaly, not elsewhere classified; I11.0 Hypertensive heart disease with heart failure; B17.9 Acute viral hepatitis, unspecified; E11.9 Type 2 diabetes mellitus without complications; E78.5 Hyperlipidemia, unspecified; K22.70 Barrett's esophagus without dysplasia; Z82.49 Family history of ischemic heart disease and other diseases of the circulatory system; Z87.891 Personal history of nicotine dependence
CPT/HCPCS: 74177; 74330; 76705; 80048; 80053; 80061; 80074; 80076; 82140; 82150; 82248; 82550; 82553; 82962; 82977; 83036; 83690; 83735; 84100; 84145; 84484; 85025; 85347; 85610; 85730; 93005; 93458; 99152; 99153; A9270-GY; C1725; C1769; C1874; C1887; C1894; C8929; C9600; J2250; J2543; J2710; J3010; J3480; Q9957; Q9967

== ENCOUNTER 2016-05-12 23:08 | Inpatient (IN) | payer BC ==
--- NOTE | ~2016-05-12 | EGD ---
EGD REPORT [facility] [address] [address] NAME: RICK SQUIRES : 57 STATUS : ADM Addi PAT#: [id number] AGE: 60 ADM/REG DATE : 05/12/16 MR#: [id number] REPORT SERV DATE: 05/13/16 DICTATED BY: HOMERO KRAFT DATE: 05/13/16 REPORT STATUS : Draft [facility]ANS[facility]ED [facility]: [facility] DATE: 05/13/16 [facility] Patient Name: Rick Squires Date of : 1955 Attending MD: HOMERO KRAFT MD Procedure Date No Time: 05/13/2016 Procedure: Upper GI endoscopy Indications: Melena Referring MD: ASHUTOSH HUERTAS Medicines: Propofol per Anesthesia Complications: No immediate complications. Procedure: Pre-Anesthesia Assessment: - ASA Grade Assessment: IV - A patient with severe systemic disease that is a constant threat to life. After obtaining informed consent, the endoscope was passed under direct vision. Throughout the procedure, the patient's blood pressure, pulse, and oxygen saturations were monitored continuously. The GIF [id number] was introduced through the mouth, and advanced to the third part of duodenum. The upper GI endoscopy was accomplished without difficulty. The patient tolerated the procedure well. Findings: The Z-line was irregular. A small hiatus hernia was present. Red blood was found in the second part of the duodenum. One oozing cratered duodenal ulcer with a visible vessel was found in the ampulla. The lesion was 6 mm in largest dimension. Area was partially successfully injected with 5 mL of a 1:10,000 solution of epinephrine for hemostasis. To prevent bleeding post-maneuver, two hemostatic clips were unsuccessfully placed. The scope could not be kept in position to allow adequate clip placement. Attempt at using the duodenoscope was unsuccessful as the Bipolar probe and clip would not function with elevation of the elevator to achieve position. Therefore, all hemostatic manuvers were done using an upper endoscopy. Coagulation for hemostasis using bipolar probe was successful. Impression: - Z-line irregular,. - Hiatus hernia. - Blood at 2nd part of the duodenum. - One duodenal ulcer oozing blood. Injected. Clips were placed. Treated with thermal therapy. Recommendation: - Platelet infusion given long half life of Brilinta to EGD REPORT [place] [address] [facility] [place]. [address] NAME: RICK SQUIRES : 57 STATUS : ADM Addi PAT#: [id number] AGE: 60 ADM/REG DATE : 05/12/16 MR#: [id number] REPORT SERV DATE: 05/13/16 DICTATED BY: HOMERO KRAFT DATE: 05/13/16 REPORT STATUS : Draft TRANSCRIBED BY: [facility] DATE: 05/13/16 ensure hemostasis is achieved. Procedure Code(s): --- Professional --- 04769, Esophagogastroduodenoscopy, flexible, transoral; with control of bleeding, any method Diagnosis Code(s): --- Professional --- K22.8, Other specified diseases of esophagus K44.9, Diaphragmatic hernia without obstruction or gangrene K92.2, Gastrointestinal hemorrhage, unspecified K26.4, Chronic or unspecified duodenal ulcer with hemorrhage K92.1, Melena CPT copyright 2013 [employer]. All rights reserved. The codes documented in this report are preliminary and upon poising inspector review may be revised to meet current compliance requirements. HOMERO KRAFT MD 05/13/2016 10:09 AM This report has been signed electronically. Number of Addenda: 0 Note Initiated On: 05/13/2016 9:20 AM Scope Withdrawal Time 0 hours 0 minutes 0 seconds [id number] [place] [id number]
--- NOTE | ~2016-05-12 | DS ---
Discharge Summary [facility] [address] [place]. [address] NAME: RICK ORELLANA : 57 STATUS : DIS Addi PAT#: [id number] AGE: 60 ADM/REG DATE : 05/12/16 MR#: [id number] REPORT SERV DATE: 05/16/16 DICTATED BY: JOSHUA CRONIN DATE: 05/15/16 REPORT STATUS : Draft TRANSCRIBED BY: AUGUSTUS DATE: 05/15/16 ADMISSION DATE: 05/12/2016 DISCHARGE DATE: 05/15/2016 DISCHARGE DIAGNOSES: 1. Upper gastrointestinal bleed from a blood vessel after a sphincterotomy of the ampulla of Vater. 2. Recent coronary artery disease, status post stent, on anticoagulation. 3. Chronic systolic heart failure, currently with an EF of 40% to 45%. 4. Type 2 diabetes mellitus. 5. Hypertension. CONSULTANTS DURING THIS HOSPITALIZATION: Dr. Fredy Louie of Gastroenterology, Dr. Holland Telles of Cardiology. INVASIVE PROCEDURES DURING THIS HOSPITALIZATION: EGD with epinephrine injection around the blood vessel and cautery of the blood vessel. BRIEF HISTORY OF PRESENT ILLNESS: The patient is a 60-year-old white gentleman who recently had a sphincterotomy for a common bile duct stone and ERCP, posted that he developed chest pain and had myocardial infarction with stent placement, was on anticoagulation, who returned back to the hospital with an upper GI bleed. For detailed history and physical exam, please see note dictated by Dr. Jose Mcfarland on 05/12/2016. HOSPITAL COURSE: After being admitted to the hospital, this patient was given IV fluids. He was appropriately monitored. Dr. Louie saw the patient in consultation, performed the EGD, and saw the bleeding blood vessel and appropriately treated it as noted above. Dr. Telles saw the patient in consultation and said that Brillinta would not be a good therapy in light of his recent GI bleed, so we switched him to Plavix after the procedure. This patient's H and H has remained stable. Today's H and H is 13.1 and 37.5. He has not displayed any further bleeding. He is tolerating a diet. He feels well enough that he wants to go home and recover in the home setting. DISCHARGE DISPOSITION: Home. DISCHARGE ACTIVITY: As tolerated. DISCHARGE DIET: GI soft diet. DISCHARGE MEDICATIONS: Amlodipine 10 mg once daily, Coreg 25 mg twice daily, Inspra 50 mg once daily, Zetia 10 mg once daily, Plavix 75 mg once daily, Protonix 40 mg once at bedtime, losartan 100 mg once at bedtime, Hytrin 5 mg once at bedtime, metformin ER 500 mg twice daily, Farxiga 5 mg once daily, aspirin 81 mg once daily. DISCHARGE FOLLOWUP: With Dr. Girish Lopez in one week for a repeat CBC, with Dr. Doni Cai in three to four weeks, with Dr. Aram Booker as previously scheduled. Discharge Summary [place] [address] [place]. [address] NAME: RICK ORELLANA : 57 STATUS : DIS Addi PAT#: [id number] AGE: 60 ADM/REG DATE : 05/12/16 MR#: [id number] REPORT SERV DATE: 05/16/16 DICTATED BY: JOSHUA CRONIN DATE: 05/15/16 REPORT STATUS : Draft TRANSCRIBED BY: AUGUSTUS DATE: 05/15/16 More than 30 minutes spent planning this patient's discharge, reconciling medications, writing prescriptions, discussing hospital care, and followup with the patient and the at the bedside, and in documenting this discharge. [facility]/AUGUSTUS Joshua Cronin M.D. / [id number] CC: Rayshawn Philippe MD Robert Drake, M.D.
--- NOTE | ~2016-05-12 | HP ---
History And Physical [place] [address] [facility] [place]. [address] NAME: RICK ORELLANA : 57 STATUS : ADM Addi PAT#: [id number] AGE: 60 ADM/REG DATE : 05/12/16 MR#: [id number] REPORT SERV DATE: 05/13/16 DICTATED BY: JUDY CARTAGENA DATE: 05/12/16 REPORT STATUS : Draft TRANSCRIBED BY: MODL DATE: 05/12/16 DATE OF ADMISSION: 05/12/2016 CHIEF COMPLAINT: A 60-year-old male presenting with melena. HISTORY OF PRESENT ILLNESS: The patient's history was obtained through careful interview with patient, , coupled with review of [facility] and [facility] medical records. The patient presented earlier this month to the hospital with choledocholithiasis, and on 05/05/2016, underwent an ERCP for removal of stones, sphincterotomy apparently and relief of gallstone-biliary obstruction. He has had improvement in his bilirubin and symptoms since that time. Unfortunately, while being hospitalized, he then developed a [id number] myocardial infarction and had to have an urgent stent placed on 05/08/2016 under the care of Dr. Parks and was placed on Brilinta. It turns out that after the patient's ERCP, he first began to notice black stool (even before he was placed on Brilinta), but he did not think to discuss this with the staff in the hospital at that time. He was discharged on 05/09/2016 and seemed to be feeling quite well, but has noticed some dark stool intermittently until today he had two very large pitch black bowel movements, one was like diarrhea. No bright red blood per rectum. No reflux symptoms. No belching. No nausea or vomiting. No chest pain. He has had some dyspnea on exertion over the last week, but it has improved every day. No lower extremity swelling. No cough. He describes epigastric abdominal discomfort cramping in quality, no radiation, 2/10 in severity only. REVIEW OF SYSTEMS: Otherwise, a 14-point review of systems was obtained and was negative. PAST MEDICAL HISTORY: 1. Diabetes. 2. Choledocholithiasis, status post ERCP intervention. 3. Juares's. 4. Hypertension. 5. Systolic congestive heart failure. Ejection fraction 40% to 45%. 6. Left bundle-branch block. 7. Coronary artery disease, status post stent placement on 05/08/2016 under the care of History And Physical [address] [place]. [address] NAME: RICK ORELLANA : 57 STATUS : ADM Addi PAT#: [id number] AGE: 60 ADM/REG DATE : 05/12/16 MR#: [id number] REPORT SERV DATE: 05/13/16 DICTATED BY: JUDY CARTAGENA DATE: 05/12/16 REPORT STATUS : Draft TRANSCRIBED BY: AUGUSTUS DATE: 05/12/16 Dr. Parks. 8. Diverticulitis, status post partial colectomy. PAST SURGICAL HISTORY: 1. Partial colectomy in 2012 for diverticulitis. 2. Pelvic abscess surgery. 3. Knee surgery. ALLERGIES: IV CONTRAST AND STATINS. SOCIAL HISTORY: Quit smoking in 1997. No alcohol abuse. He is . Lives in [place], [place]. Owns a [employer]. Has grown children, one grandchild, and 1-year-old granddaughter. FAMILY HISTORY: Mother with CABG and father with brain cancer. CURRENT MEDICATIONS: Include Norvasc 10 mg p.o. daily, aspirin 81 mg p.o. daily, Coreg 25 mg p.o. b.i.d., Farxiga 5 mg p.o. daily, Inspra 50 mg p.o. daily, Zetia 10 mg p.o. daily, Cozaar 100 mg p.o. daily, metformin 500 mg p.o. b.i.d., Brilinta 90 mg p.o. b.i.d., Hytrin 5 mg p.o. q.h.s., and Prilosec 20 mg p.o. daily. PHYSICAL EXAMINATION: VITAL SIGNS: Temperature 98.3, pulse 94, blood pressure 157/89, respiratory rate 20, and O2 saturation 98% on room air. GENERAL: A pleasant, cooperative male, in no evidence of acute distress. HEENT: Pupils are equal, round, and reactive to light. No conjunctival pallor. No scleral icterus. Nares are patent. Oropharynx is clear of obstruction. Moist mucous membranes. NECK: Trachea midline. No thyromegaly. LYMPH: No cervical lymphadenopathy. No supraclavicular lymphadenopathy. RESPIRATORY: Clear to auscultation at bases. No wheezes, rales, or rhonchi. Normal respiratory effort. CARDIOVASCULAR: Regular rate and rhythm. No murmurs, rubs, or gallops. No extremity edema is appreciated. ABDOMEN: Minimal epigastric abdominal pain. No guarding. No rebound. Nontender elsewhere. No hepatosplenomegaly. DERMATOLOGICAL: Warm and dry extremities. No pallor. No cyanosis. PSYCHIATRIC: Normal affect. Good mood. Alert and oriented x3. LABORATORY DATA: Hemoccult stool positive. AST 101, ALT 208, alkaline phosphatase 116, total bilirubin 1.8, and INR 1.1. White blood cell count 7.4, hemoglobin 14, hematocrit 41, and platelets 307. Sodium 138, potassium 3.9, chloride 100, bicarb 26, BUN 27, creatinine 1.11, and glucose 139. STUDIES: EKG by my own evaluation shows sinus rhythm, left bundle-branch block. ASSESSMENT AND PLAN: 1. Upper gastrointestinal bleed. Place on IV proton pump inhibitor drip. Consult History And Physical [address] [address] NAME: RICK ORELLANA : 57 STATUS : ADM Addi PAT#: [id number] AGE: 60 ADM/REG DATE : 05/12/16 MR#: [id number] REPORT SERV DATE: 05/13/16 DICTATED BY: JUDY CARTAGENA DATE: 05/12/16 REPORT STATUS : Draft TRANSCRIBED BY: MODAgustin DATE: 05/12/16 Sebastián adult school counselor. 2. Coronary artery disease, recent stent placement on 05/08/2016, followed by Dr. Parks, who I will consult. The patient on Brilinta. He has held his dose today and will continue to hold it on this date, but defer to Cardiology about weighing the time to restart this medication in light of acute gastrointestinal bleed. 3. Chronic systolic congestive heart failure, history of ejection fraction 40% to 45%. 4. Diabetes. Hemoglobin A1c of 6.6 on 05/05/2016. Place on sliding scale insulin. Continue home medications. DARLING/AUGUSTUS Judy Cartagena M.D. / [id number] CC: Rayshawn Mchugh M.D. Vinay Deep Madan, MD Chad Charapata, M.D.
--- NOTE | ~2016-05-12 | CN ---
Consultation Report [facility] [address] [place]. [address] NAME: RICK ORELLANA : 57 STATUS : ADM Addi PAT#: [id number] AGE: 60 ADM/REG DATE : 05/12/16 MR#: [id number] REPORT SERV DATE: 05/14/16 DICTATED BY: HOMERO KRAFT DATE: 05/13/16 REPORT STATUS : Draft TRANSCRIBED BY: AUGUSTUS DATE: 05/13/16 GI CONSULTATION DATE OF CONSULTATION: 05/13/2016 REASON FOR CONSULTATION: Melena. HISTORY OF PRESENT ILLNESS: The patient is a 60-year-old gentleman, who was recently admitted into the hospital with acute onset of abdominal pain with abnormal liver function tests and then diagnosed choledocholithiasis. He underwent an ERCP on 05/05/2016 with removal of biliary stones with sphincterotomy. 48 hours post ERCP, the patient developed chest pain and had a non-ST elevation TX, which required urgent cardiac catheterization and placement of a drug-eluting stent. He was placed on Brilinta post catheterization. He states that not soon after he began noticing episodic black-colored stools. He was discharged on 05/09/2016 and was stable. He came back into the hospital last night with two large black liquid stools. He denied any bright red blood per rectum. He denies any abdominal pain. He denies any nausea or vomiting. He denies any fevers or chills. PAST MEDICAL HISTORY: Significant for diabetes; recent choledocholithiasis, status post ERCP; history of Juares; hypertension; systolic congestive heart failure; left bundle branch block; coronary artery disease, status post stent on 05/08/2016; and history of diverticulitis, status post partial colectomy. PAST SURGICAL HISTORY: Partial colectomy, pelvic abscess surgery, and knee surgery. ALLERGIES: IV CONTRAST AND STATINS. FAMILY HISTORY: No gastrointestinal disorders. SOCIAL HISTORY: Remote smoker. No alcohol. HOME MEDICATIONS: Include Norvasc, aspirin 81 mg, Coreg, Farxiga, Inspra, Zetia, Cozaar, metformin, Brilinta, Hytrin, and Prilosec. REVIEW OF SYSTEMS: As in HPI. Otherwise, currently negative for fevers, chills, or myalgias. PHYSICAL EXAMINATION: GENERAL: Well-developed, well-nourished male, currently in no acute distress. HEENT: Atraumatic, normocephalic. Anicteric sclerae. NECK: Supple. No lymphadenopathy or JVD. CARDIOVASCULAR: Regular rate and rhythm without murmurs, rubs, gallops. LUNGS: Clear to auscultation bilaterally. ABDOMEN: Soft, nondistended, nontender. Positive bowel sounds. No hepatosplenomegaly. Consultation Report [address] [place]. [address] NAME: RICK ORELLANA : 57 STATUS : ADM Addi PAT#: [id number] AGE: 60 ADM/REG DATE : 05/12/16 MR#: [id number] REPORT SERV DATE: 05/14/16 DICTATED BY: HOMERO KRAFT DATE: 05/13/16 REPORT STATUS : Draft TRANSCRIBED BY: AUGUSTUS DATE: 05/13/16 EXTREMITIES: No cyanosis, clubbing, or edema. SKIN: Warm and dry. NEURO: Alert and oriented x3. LABORATORY DATA: Lab work reveals a hemoglobin of 14.1 on presentation and on discharge from the hospital, he was 14.7. This morning, his hemoglobin is down to 13.3. BUN was 27 on admission, was 12 on 05/09/2016. Creatinine is normal at 0.95. IMPRESSION AND PLAN: Melena, suspect bleeding from post sphincterotomy site, especially in light of the fact that he is on dual anti-platelet therapy post drug-eluting stent. As such, continue PPI, hold Brilinta, and proceed with the upper endoscopy today. SB/AUGUSTUS Homero Kraft M.D. / [id number] CC: Ryashawn Mchugh M.D.
--- NOTE | ~2016-05-12 | PRECARD ---
[facility] [address] [facility] [place]. [address] NAME: RICK SQUIRES : 57 STATUS : ADM Addi PAT#: [id number] AGE: 60 ADM/REG DATE : 05/12/16 MR#: [id number] REPORT SERV DATE: 05/13/16 DICTATED BY: ROMULO TELLES DATE: 05/13/16 REPORT STATUS : Draft TRANSCRIBED BY: AUGUSTUS DATE: 05/13/16 DATE OF ADMISSION: 05/12/2016 HISTORY OF PRESENT ILLNESS: Mr. Rick Squires is a 60-year-old gentleman, admitted with a GI bleed. Mr. Squires was hospitalized last week at [facility]. He presented with choledocholithiasis. He underwent ERCP on 05/05/2016, with removal of stones, sphincterotomy, and felt much better. His symptoms improved, bilirubin decreased. While hospitalized, he had a [id number] elevation myocardial infarction. On 05/08/2016, he underwent PCI with Synergy drug-eluting stent, resorbable polymer, into the PDA, and placed on aspirin and Brilinta. He presents now with two to three days of black stools, melena. In retrospect, he recalls having black stools prior to receiving the Brilinta. He is admitted now, he underwent upper endoscopy today with coagulation of the bleeding site. Platelet transfusion has been ordered. PAST MEDICAL HISTORY: Diabetes, Juares esophagus, hypertension, recent stent placement. MEDICATIONS: Prior to admission were amlodipine, aspirin, Coreg, Farxiga, Inspra, Zetia, Cozaar, metformin, omeprazole, Hytrin, and Brilinta. SOCIAL HISTORY: Prior tobacco. No alcohol. Owns, works in [employer] business. REVIEW OF SYSTEMS: Complete review of systems obtained, pertinent negative and unremarkable, except as noted above. All systems addressed. PHYSICAL EXAMINATION: VITAL SIGNS: Blood pressure 130/70, heart rate about 70. GENERAL: Comfortable, in no acute distress. HEENT: No xanthelasma; lips without cyanosis LUNGS: Clear to auscultation, no wheezes, rales or rhonchi; good breath sounds. COR: No JVD or hepatojugular reflux, no murmurs, rubs or gallops, impulse mid clavicular line without carotid or abdominal bruits; normal S1 and S2. ABDOMEN: Bowel sounds positive, normal activity, without tenderness, masses or hepatosplenomegaly. EXTREMITIES: No edema, cyanosis. SKIN: Normal turgor. MS: Normal muscle strength, without kyphosis/scoliosis. NEURO/PSYCH: Alert and oriented times 4, no apparent anxiety or depression. [facility] [address] [place]. [address] NAME: RICK SQUIRES : 57 STATUS : ADM Addi PAT#: [id number] AGE: 60 ADM/REG DATE : 05/12/16 MR#: [id number] REPORT SERV DATE: 05/13/16 DICTATED BY: ROMULO TELLES DATE: 05/13/16 REPORT STATUS : Draft TRANSCRIBED BY: AUGUSTUS DATE: 05/13/16 LABORATORY DATA: Hematocrit is 38.8, white count 5.9, platelet count 286,000, BUN 25, creatinine 0.9. Troponin 0.06. EKG, sinus rhythm, left bundle branch block. ASSESSMENT: Mr. Squires is a very nice, 60-year-old gentleman, who underwent ERCP with sphincterotomy on 05/05/2016, apparently had GI bleeding after that. He had a stent placed on 05/08/2016, Synergy drug-eluting stent, resorbable polymer in the PDA on 05/08/2016. He comes in with melena. He is hemodynamically stable. His hematocrit is 38.8%. Platelets have been ordered. There is an increased risk of stent thrombosis certainly within one week of stent deployment. That risk of stent thrombosis is high regardless of the stent type. Apparently, he was already bleeding prior to stent placement, perhaps the bleeding was increased because of the anticoagulation received for that procedure as well as the aspirin and ticagrelor (Brilinta). I discussed with Mr. Suqires and his the risks and benefits of stopping all antiplatelet agents. Again, he also has undergone ERCP or EGD today with injection of his bleeding site. PLAN: 1. Continue aspirin if possible. 2. Restart anti-platelet therapy, perhaps Plavix once GI thinks the bleeding risk is not excessive. ELENA/AUGUSTUS Romulo Telles M.D. / [id number] CC: Rayshawn Mchugh M.D.
[2016-05-12 18:45] LABS: BASOPHILS 0.4 %; BASOPHILS ABSOLUTE 0.03 10/3/uL (0.0-0.16); EOSINOPHILS 2.3 %; EOSINOPHILS ABSOLUTE 0.17 10/3/uL (0.0-0.53); HEMATOCRIT 40.8 % (40.0-51.0); HEMOGLOBIN 14.1 g/dL (13.6-17.8); IMMATURE GRANULOCYTES 0.4 %; IMMATURE GRANULOCYTES ABSOLUTE 0.03 10/3/uL (0.0-0.11); LYMPHOCYTES 22.1 %; LYMPHOCYTES ABSOLUTE 1.63 10/3/uL (0.67-4.30); MEAN CORPUS HGB CONC 34.6 g/dL (32.0-36.0); MEAN CORPUSCULAR HEMOGLOB 31.1 pg (26.0-34.0); MEAN CORPUSCULAR VOLUME 89.9 fL (80-100); MEAN PLATELET VOLUME 10.3 fL (9.2-13.0); MONOCYTES 7.5 %; MONOCYTES ABSOLUTE 0.55 10/3/uL (0.21-1.20); NEUTROPHILS 67.3 %; NEUTROPHILS ABSOLUTE 4.97 10/3/uL (2.02-8.40); PLATELET COUNT 307 10/3/uL (150-400); RBC DISTRIBUTION WIDTH 12.6 % (12.0-16.0); RED CELL COUNT 4.54 10/6/uL (4.7-6.1)
[2016-05-12 18:46] LABS: MANUAL DIFF NO %; WHITE BLOOD CELLS 7.4 10/3/uL (4.5-10.5)
[2016-05-12 18:54] LABS: INTERNATIONAL NORMAL RATI 1.1 UNITS (-); PARTIAL THROMBO TIME 30.6 SEC (22.5-37.2); PROTIME (NOT ORD) 14.1 SEC (12.0-14.5)
[2016-05-12 19:03] LABS: ALBUMIN 3.9 G/DL (3.5-5.0); ALKALINE PHOSPHATASE 116 U/L (45-117); BUN (BLOOD UREA NITROGEN) 27 MG/DL (6-23); CALCIUM, SERUM 9.2 MG/DL (8.5-10.4); CHLORIDE, SERUM 100 MMOL/L (96-112); CO2 (CARBON DIOXIDE) 26 MMOL/L (24-34); CREATININE 1.06 MG/DL (0.70-1.30); GFR AFRICAN AMERICAN 89 ML/MIN (>=60); GFR NON AFRICAN AMERICAN 76 ML/MIN (>=60); GLOBULIN 4.1 G/DL (2.5-4.1); GLUCOSE, SERUM 139 MG/DL (60-99); POTASSIUM, SERUM 3.9 MMOL/L (3.5-5.3); SGOT(AST) 101 U/L (5-40); SGPT(ALT) 208 U/L (5-65); SODIUM, SERUM 138 MMOL/L (135-148); TOTAL BILIRUBIN 1.8 MG/DL (0-1.2)
[~2016-05-12 23:08] MED LIST changes: +ASAB PO; +BRILINTA90 MG PO; +FARXIGA5 PO; +GLUMETZA500 MG PO; +PRILO; +ZETIA PO
[2016-05-13 04:30] LABS: BASOPHILS 0.7 %; BASOPHILS ABSOLUTE 0.04 10/3/uL (0.0-0.16); EOSINOPHILS 2.9 %; EOSINOPHILS ABSOLUTE 0.17 10/3/uL (0.0-0.53); HEMATOCRIT 38.8 % (40.0-51.0); HEMOGLOBIN 13.3 g/dL (13.6-17.8); IMMATURE GRANULOCYTES 0.2 %; IMMATURE GRANULOCYTES ABSOLUTE 0.01 10/3/uL (0.0-0.11); LYMPHOCYTES 40.2 %; LYMPHOCYTES ABSOLUTE 2.37 10/3/uL (0.67-4.30); MEAN CORPUS HGB CONC 34.3 g/dL (32.0-36.0); MEAN CORPUSCULAR HEMOGLOB 30.8 pg (26.0-34.0); MEAN CORPUSCULAR VOLUME 89.8 fL (80-100); MEAN PLATELET VOLUME 10.2 fL (9.2-13.0); MONOCYTES 8.8 %; MONOCYTES ABSOLUTE 0.52 10/3/uL (0.21-1.20); NEUTROPHILS 47.2 %; NEUTROPHILS ABSOLUTE 2.79 10/3/uL (2.02-8.40); PLATELET COUNT 286 10/3/uL (150-400); RBC DISTRIBUTION WIDTH 12.3 % (12.0-16.0); RED CELL COUNT 4.32 10/6/uL (4.7-6.1); WHITE BLOOD CELLS 5.9 10/3/uL (4.5-10.5)
[2016-05-13 04:31] LABS: MANUAL DIFF NO %
[2016-05-13 04:39] LABS: INTERNATIONAL NORMAL RATI 1.1 UNITS (-); PARTIAL THROMBO TIME 30.3 SEC (22.5-37.2); PROTIME (NOT ORD) 14.4 SEC (12.0-14.5)
[2016-05-13 04:55] LABS: A/G RATIO 0.9 (0.7-1.9); ALBUMIN 3.5 G/DL (3.5-5.0); BUN (BLOOD UREA NITROGEN) 25 MG/DL (6-23); CALCIUM, SERUM 8.8 MG/DL (8.5-10.4); CHLORIDE, SERUM 102 MMOL/L (96-112); CO2 (CARBON DIOXIDE) 25 MMOL/L (24-34); CREATININE 0.95 MG/DL (0.70-1.30); GFR AFRICAN AMERICAN 101 ML/MIN (>=60); GFR NON AFRICAN AMERICAN 87 ML/MIN (>=60); GLOBULIN 3.9 G/DL (2.5-4.1); GLUCOSE, SERUM 113 MG/DL (60-99); POTASSIUM, SERUM 3.8 MMOL/L (3.5-5.3); SGOT(AST) 97 U/L (5-40); SGPT(ALT) 194 U/L (5-65); SODIUM, SERUM 138 MMOL/L (135-148); TOTAL BILIRUBIN 1.7 MG/DL (0-1.2); TOTAL PROTEIN 7.4 G/DL (6.0-8.5)
[2016-05-13 05:12] LABS: ALKALINE PHOSPHATASE 94 U/L (45-117); TROPONIN I 0.06 NG/ML (<0.05)
[2016-05-13 11:47] LABS: HEMATOCRIT 38.8 % (40.0-51.0); HEMOGLOBIN 13.3 g/dL (13.6-17.8)
[2016-05-13 20:23] LABS: HEMATOCRIT 37.2 % (40.0-51.0); HEMOGLOBIN 12.7 g/dL (13.6-17.8)
[2016-05-14 02:11] LABS: HEMATOCRIT 38.6 % (40.0-51.0); HEMOGLOBIN 13.5 g/dL (13.6-17.8)
[2016-05-14 07:08] LABS: BASOPHILS 0.6 %; BASOPHILS ABSOLUTE 0.03 10/3/uL (0.0-0.16); EOSINOPHILS 2.7 %; EOSINOPHILS ABSOLUTE 0.14 10/3/uL (0.0-0.53); HEMATOCRIT 38.7 % (40.0-51.0); HEMOGLOBIN 13.4 g/dL (13.6-17.8); IMMATURE GRANULOCYTES 0.2 %; IMMATURE GRANULOCYTES ABSOLUTE 0.01 10/3/uL (0.0-0.11); LYMPHOCYTES 30.1 %; LYMPHOCYTES ABSOLUTE 1.55 10/3/uL (0.67-4.30); MEAN CORPUS HGB CONC 34.6 g/dL (32.0-36.0); MEAN CORPUSCULAR VOLUME 89.6 fL (80-100); MEAN PLATELET VOLUME 10.2 fL (9.2-13.0); MONOCYTES ABSOLUTE 0.41 10/3/uL (0.21-1.20); NEUTROPHILS 58.4 %; NEUTROPHILS ABSOLUTE 3.01 10/3/uL (2.02-8.40); PLATELET COUNT 308 10/3/uL (150-400); RBC DISTRIBUTION WIDTH 12.4 % (12.0-16.0); RED CELL COUNT 4.32 10/6/uL (4.7-6.1); WHITE BLOOD CELLS 5.2 10/3/uL (4.5-10.5)
[2016-05-14 07:12] LABS: MANUAL DIFF NO %
[2016-05-14 07:24] LABS: ALBUMIN 3.6 G/DL (3.5-5.0); CHLORIDE, SERUM 102 MMOL/L (96-112); CO2 (CARBON DIOXIDE) 27 MMOL/L (24-34); CREATININE 0.79 MG/DL (0.70-1.30); GFR AFRICAN AMERICAN 114 ML/MIN (>=60); GFR NON AFRICAN AMERICAN 98 ML/MIN (>=60); GLUCOSE, SERUM 110 MG/DL (60-99); SODIUM, SERUM 139 MMOL/L (135-148)
[2016-05-14 07:27] LABS: BUN (BLOOD UREA NITROGEN) 12 MG/DL (6-23); POTASSIUM, SERUM 4.1 MMOL/L (3.5-5.3)
[2016-05-14 11:57] LABS: HEMATOCRIT 38.3 % (40.0-51.0); HEMOGLOBIN 13.3 g/dL (13.6-17.8)
[2016-05-15 06:00] LABS: BASOPHILS 1.2 %; BASOPHILS ABSOLUTE 0.06 10/3/uL (0.0-0.16); EOSINOPHILS 2.9 %; EOSINOPHILS ABSOLUTE 0.14 10/3/uL (0.0-0.53); HEMATOCRIT 37.6 % (40.0-51.0); HEMOGLOBIN 13.1 g/dL (13.6-17.8); IMMATURE GRANULOCYTES 0.2 %; IMMATURE GRANULOCYTES ABSOLUTE 0.01 10/3/uL (0.0-0.11); LYMPHOCYTES 33.8 %; LYMPHOCYTES ABSOLUTE 1.65 10/3/uL (0.67-4.30); MEAN CORPUS HGB CONC 34.8 g/dL (32.0-36.0); MEAN CORPUSCULAR HEMOGLOB 31.2 pg (26.0-34.0); MEAN CORPUSCULAR VOLUME 89.5 fL (80-100); MEAN PLATELET VOLUME 9.8 fL (9.2-13.0); MONOCYTES 11.5 %; MONOCYTES ABSOLUTE 0.56 10/3/uL (0.21-1.20); NEUTROPHILS 50.4 %; NEUTROPHILS ABSOLUTE 2.46 10/3/uL (2.02-8.40); PLATELET COUNT 307 10/3/uL (150-400); RBC DISTRIBUTION WIDTH 12.3 % (12.0-16.0); WHITE BLOOD CELLS 4.9 10/3/uL (4.5-10.5)
[2016-05-15 06:08] LABS: MANUAL DIFF NO %
[2016-05-15] MEDS ORDERED: PLAVIX PO (11:36)
[2016-05-15] MEDS ORDERED: PROTONIX PO (11:38)
== END 2016-05-15 12:45 | disposition home or self-care (01) | DRG 378 ==
LOC: ER 23:08 → 6NO 23:14
PROVIDERS: Hospitalist; Internal Medicine; Internal Medicine Cardiovascular Disease; Internal Medicine Gastroenterology
PROC: 3E0G8GC Introduction of Other Therapeutic Substance into Upper GI, Via Natural or Artificial Opening Endoscopic (ICD-10-PCS; principal; 2016-05-13 09:25)
PROC: 0W3P8ZZ Control Bleeding in Gastrointestinal Tract, Via Natural or Artificial Opening Endoscopic (ICD-10-PCS; 2016-05-13 09:25)
DX: K92.1 Melena (principal); I50.22 Chronic systolic (congestive) heart failure; I11.0 Hypertensive heart disease with heart failure; K91.841 Postprocedural hemorrhage of a digestive system organ or structure following other procedure; I25.10 Atherosclerotic heart disease of native coronary artery without angina pectoris; Z79.01 Long term (current) use of anticoagulants; E11.9 Type 2 diabetes mellitus without complications; I25.2 Old myocardial infarction; K22.70 Barrett's esophagus without dysplasia; Z87.891 Personal history of nicotine dependence; K44.9 Diaphragmatic hernia without obstruction or gangrene; K21.9 Gastro-esophageal reflux disease without esophagitis
CPT/HCPCS: 36415; 80053; 80069; 82962; 83735; 83880; 84443; 84484; 85014; 85018; 85025; 85610; 85730; 86850; 86900; 86901; 93005; 99285; A9270-GY; C9113; P9035